=== PATIENT | male | born 1985 | race Caucasian/White ===

== ENCOUNTER 2016-12-31 21:06 | Emergency (ER) | payer MEDICAID ==
[~2016-12-31 21:06] MED LIST: CYCL10TA9 PO; HYDR-4003 PO; OXYC1TAB24 PO; PENI500T PO
[2016-12-31 21:14] VITALS: BP 131/88; PULSE 101; O2SAT 98
--- NOTE | 2016-12-31 22:49 | ED.REPORT ---
HPI-General Illness Date of Service Dec 31, 2016 ED Provider: Davonte Simmons DO Patient is a 31 year old male who presents to the ED complaining of rectal pain onset a few days ago. He states that he has tried using his finger and lubricant , enemas, and laxatives to pass his stool but that he can "feel a hard ball of stool". Associated symptoms include chills and diaphoresis. He denies abdominal pain, rectal bleeding, or any other symptoms. Patient reports that he has intermittent problems with constipation. Nursing Notes Stated Complaint: IMPACTED STOOL Chief Complaint: Male Abdominal Pain Nursing Notes Reviewed: Yes Allergies: Coded Allergies: Sulfa (Sulfonamide Antibiotics) (Verified Allergy, Intermediate, Rash, ) Scheduled Penicillin V Potassium (Penicillin V Potassium) 500 Mg Tablet 500 MG PO QID Scheduled PRN Cyclobenzaprine (Cyclobenzaprine) 10 Mg Tablet 10 MG PO TID PRN PRN Spasm Hydrocodone-Acetaminophen 5-325 mg (Hydrocodone-Acetaminophen 5-325 mg) 1 Each Tablet 1 TABLET PO Q4H PRN PRN For Pain oxyCODONE-Acetaminophen 5-325 mg (oxyCODONE-Acetaminophen 5-325 mg) 1 Each Tablet 1-2 TAB PO Q6H PRN PRN For Pain General Time Seen by MD: 22:48 Chief Complaint Other (Rectal pain) Hx Obtained From: Patient Arrived By: Walk-in Past Medical History Past Medical History Notes: smokes cigarrettes. marijuana Past Medical History Kidney Stones Constipation Past Surgical History Denies Smoking History Current Every Day Smoker Social History Alcohol Use: Denies alcohol use Drug Use: THC Other Social History: Good social support Occupation lives with [email or web address], at present 10.5 weeks. works at [employer]. 09/09/2016 on 09/28/2016 states no insurance 09/28/2016 Ambulatory Status Independent Review of Systems Full Review of Systems Constitutional: Reports: Chills GI: Reports: Constipation, Rectal pain, Denies: Abdominal pain, Bloody/tarry stool Skin: Reports Diaphoresis Complete sys rev & neg: except as marked. Physical Exam Vital Signs Vital Signs Date Time Temp Pulse Resp B/P Pulse Ox O2 Delivery O2 Flow Rate FiO2 12/31/16 21:14 36.1 101 131/88 98 Room Air Initial VS: Reviewed Head / Eyes: Atraumatic, Normocephalic Neck: Full range of motion Respiratory: No respiratory distress Abdomen / GI: Soft, Non-tender Skin: Warm, Dry Neurologic: Alert, Oriented, Nonfocal Psychiatric: Mood/affect normal, Behavior normal, Normal thought content General/Constitutional: Awake, Alert, Well developed Distress / Hydration: Positive: Distress moderate Rectum / Perineum: No gross blood Hard ball of impacted stool that was manually disimpacted hard stool followed by red rubber catheter and enema Re-Eval/Medical Decision Med Decision/Clinical Course Severe fecal impaction, manually disimpacted at the bedside, given enemas in the ER. Will be reevaluated by Dr. Reeves. Time of Eval: 23:29 Re-Evaluation/Progress Note: Rechecked patient and attempted to perform rectal exam. Patient is too uncomfortable to perform adequate exam. Time of Eval: 23:52 Re-Evaluation/Progress Note: Manually disimpacted hard stool. Patient's condition improved. Counseled Regarding: Diagnosis, Need for follow-up, When/why to return to ED Discharge & Departure Shift Change Sign-Out Patient Care Transferred: Yes Discussed Complaint(s): Yes Transfer of care to Dr. Reeves at 0032 Primary Impression: Fecal impaction in rectum Ruled Out: Ureterolithiasis Disposition: Home Discharge Condition Condition: Stable Additional Instructions: Use MiraLAX daily, use a enema as needed daily for the next 2 days to help with constipation. Follow-up with a primary care doctor for further evaluation or return to ER if worse. Referrals: [facility] Care Transferred to: [facility] Transferred at: 00:32 Scribe Attestation Portions of this note were transcribed by Pritesh Hernandez. I, Dr. Simmons personally performed the history, physical exam and medical decision-making; I reviewed and confirmed the accuracy of the information in the transcribed note. Signed by: Pritesh Hernandez 01/01/2017, 0034 copies to: [facility] Davonte Simmons DO Dec 31, 2016 22:49 PRITESH HERNANDEZ Dec 31, 2016 22:58
[2016-12-31] MEDS ORDERED: fentaNYL-PF 50 mCg/mL 2 mL Inj IM ONE (22:55)
[2016-12-31] MEDS ORDERED: Ketamine 100 mg/mL 5 mL Inj IM ONE ×2 (23:35)
[2017-01-01 00:50] VITALS: BP 130/82; PULSE 110; RESP 20; O2SAT 99
[2017-01-01 02:04] VITALS: BP 128/80; PULSE 99; RESP 18; O2SAT 100
== END 2017-01-01 02:00 | disposition home or self-care (01) ==
LOC: SED 21:06
DX: K56.41 Fecal impaction (principal); R61 Generalized hyperhidrosis; R68.83 Chills (without fever); F17.200 Nicotine dependence, unspecified, uncomplicated; Z88.2 Allergy status to sulfonamides
CPT/HCPCS: 96372; 99284; J3010

== ENCOUNTER 2017-02-23 22:40 | Emergency (ER) | payer MEDICAID ==
[~2017-02-23] VITALS: Ht 180.3 cm; Wt 77.3 kg
[2017-02-23 22:46] VITALS: BP 154/103; PULSE 85; RESP 16; O2SAT 99
--- NOTE | 2017-02-23 23:00 | ED.REPORT ---
HPI-Back Pain Under 40 Date of Service Feb 23, 2017 ED Provider: Juan Burns MD The patient is a 31 year old male who presents to the emergency department complaining of lower back pain that began a few days ago after heavy lifting. The pain radiates down both of his legs and has noticed mild tingling in his toes. He describes the pain as "throbbing." He had similar symptoms several months ago and was diagnosed with muscle spasms. He denies numbness, weakness, blader incontinence, bowel incontinence, numbness to his groin region, or difficulty initiating urination. The patient does not currently have a primary care provider. He denies history of IV drug use. Nursing Notes Stated Complaint: LOW BACK PAIN Chief Complaint: Back Pain or Injury Nursing Notes Reviewed: Yes Allergies: Coded Allergies: Sulfa (Sulfonamide Antibiotics) (Verified Allergy, Intermediate, Rash, ) Scheduled Penicillin V Potassium (Penicillin V Potassium) 500 Mg Tablet 500 MG PO QID Scheduled PRN Cyclobenzaprine (Cyclobenzaprine) 10 Mg Tablet 10 MG PO TID PRN PRN Spasm Hydrocodone-Acetaminophen 5-325 mg (Hydrocodone-Acetaminophen 5-325 mg) 1 Each Tablet 1 TABLET PO Q4H PRN PRN For Pain oxyCODONE-Acetaminophen 5-325 mg (oxyCODONE-Acetaminophen 5-325 mg) 1 Each Tablet 1-2 TAB PO Q6H PRN PRN For Pain General Time Seen by MD: 22:57 Chief Complaint Back pain Hx Obtained From: Patient Arrived By: Walk-in Sudden in Onset?: No Onset Occurred: 3 days ago Symptom Duration: Since onset Caused by: Lifting Location: : Perispinal lumbar Quality: Painful, Throbbing Radiation: : Left leg above knee: Right leg above knee Severity: Current: Moderate Severity: Maximum: Severe Recent Healthcare: No recent doctor visit, No recent hospitalization Similar Sx Previous: Yes Past Medical History Past Medical History Notes: No PCP Past Medical History Kidney Stones Constipation Chronic back pain Past Surgical History Denies Family History Noncontributory Smoking History Current Every Day Smoker Social History Alcohol Use: Denies alcohol use Drug Use: THC Other Social History: Good social support, Local resident Occupation Works at [employer] Ambulatory Status Independent Review of Systems Review of Systems Note: +tingling in his toes Constitutional: Denies: Chills, Fever Musculoskeletal: Reports: Back pain, Extremity pain Neurologic: Denies: Bladder dysfunction, Bowel dysfunction, Focal weakness, Numbness, Problem walking, Weakness Complete sys rev & neg: except as marked. Physical Exam Initial Vital Signs Vital Signs (First) Date Time Temp Pulse Resp B/P Pulse Ox O2 Delivery O2 Flow Rate FiO2 02/23/17 22:46 36.3 85 16 154/103 99 Room Air Initial VS: Reviewed Head / Eyes: Atraumatic, Normocephalic, PERRL ENT: Mucous membranes moist, Conjunctiva normal, No scleral icterus Neck: Supple, Non-tender, Full range of motion Respiratory: Breath sounds normal, Clear to auscultation, No respiratory distress Cardiovascular: Regular rate & rhythm, Heart sounds normal, Intact distal pulses Abdomen / GI: Soft, Non-tender, No guarding, No rebound, No distention Lymphatic: No lymphadenopathy Extremities: Vascular intact, Neuro intact, No swelling, No tenderness Skin: Warm, Dry, No cyanosis Psychiatric: Mood/affect normal, Behavior normal, Normal thought content General/Constitutional: Awake, Alert, Well appearing Back: No midline vertebral tend, Straight leg raise neg Lumbar paraspinal tenderness bilaterally. No midline tenderness, deformity or step off. Neurologic: Oriented X3, Speech NL, No motor deficits, No sensory deficits, CN II - XII intact, Cerebellar NL, Memory NL 2+ patellar reflexes bilaterally. Strength is 5/5 to both lower and upper extremities. Re-Eval/Medical Decision Med Decision/Clinical Course In summary, the patient is a 31-year-old male with past medical history significant for chronic/recurrent low back pain, who presents with back pain exacerbation in the setting of heavy lifting at work. Our primary and secondary assessment reveals an awake, alert patient in no acute distress. Hemodynamically stable and afebrile. Exam reveals normal neurologic exam of the lower extremities. Given this immunocompetent, afebrile, patient's history and exam, suspect muscle strain or spasm. No concerning signs or symptoms suggestive of cauda equina, cord compression, epidural abscess or other neurologic emergency. History not suggestive of referred intraabdominal pathology or vascular emergency. There is no history of significant trauma, fever, incontinence, unexplained weight loss, cancer history, long-term steroid use or IV drug use. And given the patient's young age, I do not feel imaging is warranted at this time. Given the patient's workup, feel they are safe for discharge with conservative management. The patient was given muscular Toradol for symptom control while in the ER. Patient repeatedly requested opiate pain medications and stated that if not given them he would "resort to illegal activity". He admits that he is been receiving tablets of Percocet from his mother for his pain and states that nothing else seems to work. I spent a very long time with the patient talking about the importance of not managing his chronic pain with opiates as this was a poor long-term strategy. He seems to have insight into this though reports that it is the only thing that works. I have declined to treat his pain with opiates today and advised him that he should follow up with his primary care doctor and discuss non-opiate options for long-term pain management. Have discussed with the patient results of workup, indications for return including: motor weakness in the lower extremities and/or bowel or bladder incontinence. Also emphasized the need for PCP follow up. They understand and agree with the plan. Source of Hx: Old records Re-Evaluation/Progress : Time of Eval: 23:09 Re-Evaluation/Progress Note: Discussed exam findings, diagnosis, and plan for discharge. All questions were addressed. Counseled Regarding: Diagnosis, Need for follow-up, When/why to return to ED Discharge & Departure Impression: Primary Impression: Low back pain Chronicity: acute Back pain laterality: bilateral Sciatica presence: with sciatica Sciatica laterality: bilateral sciatica Qualified Code: M54.42 - Lumbago with sciatica, left side Additional Impression: Opiate dependence Substance use status: uncomplicated Qualified Code: F11.20 - Opioid dependence, uncomplicated Disposition: Home All VS Reviewed: Yes Condition: Stable Patient Instructions: Low Back Strain (ED) Additional Instructions: Thank you for seeking care at the emergency room. It is difficult for us to make definitive diagnoses in the ED but we believe that you are experiencing musculoskeletal pain. Our primary goal today in the ED was to evaluate you for any life-threatening conditions. Your evaluation was reassuring. Continue to take ibuprofen as needed for pain. You can also try applying ice to the painful areas if this helps. Try to stretch and move around often throughout the day. You should follow-up with your primary doctor in the near future to further manage your chronic pain. We have given you a referral to the residency clinic. You should return to the ED immediately if you develop increased pain, numbness , weakness, inability to walk, bladder incontinence, bowel incontinence, fevers , vomiting or any other concerning signs or symptoms. Thank you for letting us partake in your care today. Referrals: [facility] Scribe Attestation Portions of this note were transcribed by Fatuma Stratton. I, Dr. Burns personally performed the history, physical exam and medical decision-making; I reviewed and confirmed the accuracy of the information in the transcribed note. Signed by: Adolph Jacobo, 02/23/2017 at 2320. Juan Burns MD Feb 23, 2017 23:00 Fatuma Stratton Feb 23, 2017 23:07
[2017-02-24] MEDS ORDERED: OXYC1TAB24 PO (09:24)
== END 2017-02-23 23:45 | disposition home or self-care (01) ==
LOC: SED 22:40
DX: M54.42 Lumbago with sciatica, left side (principal); F11.20 Opioid dependence, uncomplicated; X50.3XXA Overexertion from repetitive movements, initial encounter; Y93.89 Activity, other specified; Y92.69 Other specified industrial and construction area as the place of occurrence of the external cause; Y99.0 Civilian activity done for income or pay; F17.200 Nicotine dependence, unspecified, uncomplicated; Z88.2 Allergy status to sulfonamides
CPT/HCPCS: 96372; 99283; J1885

== ENCOUNTER 2017-02-24 04:14 | Emergency (ER) | payer MEDICAID ==
[~2017-02-24] VITALS: Ht 180.3 cm; Wt 77.3 kg
[2017-02-24 04:17] VITALS: BP 163/95; PULSE 107; RESP 17; O2SAT 100
--- NOTE | 2017-02-24 04:28 | ED.REPORT ---
HPI-Back Pain Under 40 Date of Service Feb 24, 2017 ED Provider: Dr. Aquilino Reeves M.D. A 31 year old male with a medical history including chronic back pain presents to the ED with low back pain onset a few days ago, after heavy lifting. The pain radiates down his legs bilaterally (R>L) and prevents him from sleeping. The patient also reports bilateral lower extremity tingling and numbness. He denies bowel incontinence, urinary incontinence, weakness, or other symptoms. The patient was seen in the ED late yesterday with similar symptoms and was discharged after receiving a shot of Toradol, with no relief. At that time he requested opiate pain medication and his physician had a long conversation about treating chronic back pain with opiates in the ED. Nursing Notes Stated Complaint: LOWER BACK PAIN/LEG PAIN Chief Complaint: Back Pain or Injury Nursing Notes Reviewed: Yes Allergies: Coded Allergies: Sulfa (Sulfonamide Antibiotics) (Verified Allergy, Intermediate, Rash, ) Scheduled Penicillin V Potassium (Penicillin V Potassium) 500 Mg Tablet 500 MG PO QID Scheduled PRN Cyclobenzaprine (Cyclobenzaprine) 10 Mg Tablet 10 MG PO TID PRN PRN Spasm Hydrocodone-Acetaminophen 5-325 mg (Hydrocodone-Acetaminophen 5-325 mg) 1 Each Tablet 1 TABLET PO Q4H PRN PRN For Pain oxyCODONE-Acetaminophen 5-325 mg (oxyCODONE-Acetaminophen 5-325 mg) 1 Each Tablet 1-2 TAB PO Q6H PRN PRN For Pain General Time Seen by MD: 04:27 Chief Complaint Lumbar pain Hx Obtained From: Patient Arrived By: Walk-in Sudden in Onset?: Yes Onset Occurred: 3 days ago ("a few") Symptom Duration: Since onset Caused by: Lifting Location: : Perispinal lumbar Quality: Painful Radiation: : Left leg above knee: Right leg above knee Severity: Current: Moderate Severity: Maximum: Moderate Associated with: Reports: Numbness both low ext, Tingling left lower ext, Tingling right lower ext, Denies: Incontinence bladder, Incontinence bowel, Weakness both lower ext Related History: Reports: Chronic back pain, Kidney stone Recent Healthcare: Recent doctor visit Similar Sx Previous: Yes Past Medical History Past Medical History Notes: No PCP Past Medical History Kidney Stones Constipation Chronic back pain Past Surgical History Denies Family History Noncontributory Smoking History Current Every Day Smoker Social History Alcohol Use: Denies alcohol use Drug Use: THC Other Social History: Good social support, Local resident Occupation Works at [employer] Ambulatory Status Independent Review of Systems Review of Systems Note: + Bilateral lower extremity tingling Constitutional: Denies: Fever Respiratory: Denies: Non-productive cough, Shortness of breath GI: Denies: Diarrhea, Vomiting Male: Denies Incontinence Musculoskeletal: Reports: Back pain, Extremity pain (Bilateral legs (R>L)) Neurologic: Reports: Numbness (Bilateral legs), Denies: Bladder dysfunction, Bowel dysfunction, Weakness Complete sys rev & neg: except as marked. Psychiatric: Reports: Insomnia Physical Exam Initial Vital Signs Vital Signs (First) Date Time Temp Pulse Resp B/P Pulse Ox O2 Delivery O2 Flow Rate FiO2 02/24/17 04:17 36.4 107 17 163/95 100 Room Air Initial VS: Reviewed Head / Eyes: Atraumatic, Normocephalic ENT: Conjunctiva normal, No scleral icterus Respiratory: No respiratory distress Skin: Warm, Dry, No cyanosis Psychiatric: Mood/affect normal, Behavior normal, Normal thought content General/Constitutional: Awake, Alert Appearance / Presentation: Positive: In pain Braced and stiff in bed BACK: Patient describes pain in right sciatic area with numbness below the knee Neurologic: Oriented X3, Speech NL Sensory Deficit: Positive: Lower extremity R (Right foot) Reflex Abnormality: Positive: Patella L... (2), Patellar R... (1) Re-Eval/Medical Decision Med Decision/Clinical Course 31-year-old with chronic back pain presents with an exacerbation. He has definitive neuro symptoms in the right leg consistent with sciatica, including diminished reflexes in the patellar region, and decreased sensation in the lower leg and foot. This is been persistent through more than a day. He has had no incontinence or saddle anesthesia. He has not had MRI imaging prior to this. He has had two or perhaps three CT scans, nondiagnostic of any immediately reversible issue. He is signed out at [address] Mo, with an MRI pending. He may have a surgically remediable lesion, and can then be referred to surgery if appropriate. I had a long discussion with him about the non-utility of narcotic pain relievers in this setting. He is adamant that he has had no pain relief thus far, but a brief course of Decadron, muscle relaxers, nonsteroidals, and physical measures may be sufficient to get him through this acute flare. Source of Hx: Old records Re-Evaluation/Progress : Time of Eval: 04:45 Patient Status: Condition improved Re-Evaluation/Progress Note: Held a long conversation about opiate pain medication and other potential options for chronic back pain. Discussed with patient plan for MRI and transfer of care to Dr. Mo at change of shift. Discharge & Departure Shift Change Sign-Out Patient Care Transferred: Yes Discussed Complaint(s): Yes Imaging Studies: Ordered, not yet done Response to Therapy: Improved Impression: Primary Impression: Sciatica Laterality: right Qualified Code: M54.31 - Sciatica, right side Referrals: NOPCP (PCP) Care Transferred to: Dr. Mo Care Transferred at: 06:00 Scribe Attestation Portions of this note were transcribed by Amairani Martínez. I, Dr. Reeves, personally performed the history, physical exam, and medical decision-making; I reviewed and confirmed the accuracy of the information in the transcribed note. Signed by: Adolph Graves, 02/24/2017, 06:05 Aquilino Reeves MD Feb 24, 2017 04:28 AMAIRANI MARTÍNEZ Feb 24, 2017 04:37
[2017-02-24] MEDS ORDERED: Dexamethasone 20 mg/2 mL Oral Solution PO ONE (04:50)
[2017-02-24] MEDS ORDERED: LORazepam 2 mg Tablet PO ONE (04:50)
--- NOTE | 2017-02-24 08:37 | DRSVH ---
PROCEDURE: MRI LUMBAR SPINE WITHOUT CONTRAST ([id number]) INDICATIONS: rt sciatica, numbness TECHNIQUE: Noncontrast sagittal T1 spin echo and T2 fast echo, sagittal STIR, axial T1 and T2 fast spin echo thr ough the lumbar spine. In cases with scoliosis, additional coronal T2 fast spin echo may be performe d. COMPARISON: None. FINDINGS: Image quality: Excellent. Alignment and Curvature: There is normal bony alignment. Bone Marrow: Marrow is of normal overall signal. No acute vertebral body compression fractures. Spinal Cord: Conus medullaris terminates at the T11/T12 level. Visualized cord demonstrates normal signal and size. Paraspinous Soft Tissues: No paravertebral masses. L1-L2: Mild disc desiccation. Broad-based disc bulge. Mild facet and ligamentum flavum hypertrophy. N o canal stenosis. No foraminal stenosis. L2-L3: Mild disc desiccation. Broad-based disc bulge. No canal stenosis. No neural foraminal narrowin g. L3-L4: Mild disc desiccation and height loss. Broad-based disc bulge. Mild facet and ligamentum flavu m hypertrophy. No canal stenosis. No foraminal stenosis. L4-L5: Mild disc desiccation. Broad-based disc bulge. Mild facet and ligamentum flavum hypertrophy. N o canal stenosis. No foraminal narrowing. L5-S1: Mild disc desiccation and height loss. Broad-based disc bulge. No canal stenosis. Mild bilater al foraminal stenosis. There is a small posterior focal high intensity zone. IMPRESSION: 1. Mild disc desiccation and height loss throughout the lumbar spine. No canal stenosis or significan t foraminal stenosis to explain sciatica. 2. L5-S1 posterior annular fibrosis tear. Dictated by: Gianna Armendariz M.D. on 02/24/2017 at 8:31 Approved by: Gianna Armendariz M.D. on 02/24/2017 at 8:36
[2017-02-24] MEDS ORDERED: oxyCODONE-Acetamin 5-325 mg Tablet PO ONE (09:20)
[2017-02-24] MEDS ORDERED: OXYC1TAB24 PO (09:24)
[2017-02-24 09:31] VITALS: BP 134/107; PULSE 106; O2SAT 95
== END 2017-02-24 09:24 | disposition home or self-care (01) ==
LOC: SED 04:14
DX: M54.31 Sciatica, right side (principal); F17.200 Nicotine dependence, unspecified, uncomplicated; Z88.2 Allergy status to sulfonamides

== ENCOUNTER 2017-05-05 07:31 | Emergency (ER) | payer MEDICAID ==
[~2017-05-05] VITALS: Ht 180.3 cm; Wt 77.3 kg
[2017-05-05 07:34] VITALS: BP 150/97; PULSE 131; RESP 20; O2SAT 97
[2017-05-05 07:57] VITALS: PULSE 105; RESP 20; O2SAT 98
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
== END 2017-05-05 09:12 | disposition home or self-care (01) ==
LOC: SED 07:31
DX: S33.5XXA Sprain of ligaments of lumbar spine, initial encounter (principal); F11.29 Opioid dependence with unspecified opioid-induced disorder; V49.9XXA Car occupant (driver) (passenger) injured in unspecified traffic accident, initial encounter; Y93.89 Activity, other specified; Y99.8 Other external cause status; Y92.410 Unspecified street and highway as the place of occurrence of the external cause; F17.200 Nicotine dependence, unspecified, uncomplicated; F12.10 Cannabis abuse, uncomplicated; Z76.5 Malingerer [conscious simulation]; Z87.828 Personal history of other (healed) physical injury and trauma; Z87.442 Personal history of urinary calculi; Z88.2 Allergy status to sulfonamides